=== PATIENT | female | born 1975 | race Caucasian/White ===

== ENCOUNTER → 2016-06-19 | Outpatient (CLI) | payer OTHER | LOC: MAMMO 10:14 | DX: Z12.31 Encounter for screening mammogram for malignant neoplasm of breast (principal) | CPT/HCPCS: G0202 ==

== ENCOUNTER 2018-05-23 08:50 | Emergency (ER) | payer BC ==
[~2018-05-23] VITALS: Wt 75.0 kg
[2018-05-23] MEDS ORDERED: ETHINYL ESTRADI1 TA1 PO (09:01)
[2018-05-23 09:24] LABS: EOS # 0.2 (0.04-0.40); EOS % 3.3 % (1.0-5.0); HEMATOCRIT 38.2 % (37.0-47.0); LYMPH# 1.7 (1.50-4.00); MEAN CELL VOLUME 91 fl (78-100); MEAN CORPUSCULAR HEMOGLOBIN 31 pg (27-31); MEAN CORPUSCULAR HGB CONC 34 g/dL (33-37); MEAN PLATELET VOLUME 10.7 fl (7.4-10.4); MONO # 0.4 (0.20-0.80); NEU # 3.8 (1.40-6.50); PLATELET COUNT 224 K/mm3 (130-400); RED BLOOD COUNT 4.18 M/mm3 (4.10-5.30); RED CELL DISTRIBUTION WIDTH 12.7 % (11.5-14.5); WHITE BLOOD COUNT 6.2 K/mm3 (4.8-10.8)
[2018-05-23 09:31] LABS: ALBUMIN 4.3 g/dL (3.5-5.0); POTASSIUM 3.6 mmol/L (3.6-5.0); TOTAL BILIRUBIN 0.4 mg/dL (0.2-1.3); TOTAL PROTEIN 7.8 g/dL (6.3-8.2)
[2018-05-23] MEDS ORDERED: DILANTIN 100MG100 MG PO (12:29)
[2018-05-23 12:55] VITALS: BP 132/76
== END 2018-05-23 12:58 | disposition home or self-care (01) ==
LOC: ED 08:50
PROVIDERS: Nurse Practitioner Primary Care
DX: R56.9 Unspecified convulsions (principal); S00.03XA Contusion of scalp, initial encounter; Z98.51 Tubal ligation status
CPT/HCPCS: J1885; J2060; J2405

== ENCOUNTER → 2018-05-26 | Outpatient (CLI) | payer BC ==
[2018-05-23 12:55] VITALS: BP 132/76
[~2018-05-26] MED LIST: DILANTIN 100MG100 MG PO; ETHINYL ESTRADI1 TA1 PO
== END ==
LOC: RAD 11:46
DX: R56.9 Unspecified convulsions (principal)
CPT/HCPCS: A9585

== ENCOUNTER → 2018-05-29 | Outpatient (CLI) | payer BC ==
[2018-05-23 12:55] VITALS: BP 132/76
[2018-05-29 10:35] LABS: EOS # 0.1 (0.04-0.40); EOS % 2.4 % (1.0-5.0); HEMATOCRIT 38.3 % (37.0-47.0); HEMOGLOBIN 12.5 g/dL (12.5-16.0); LYMPH# 1.1 (1.50-4.00); MEAN CELL VOLUME 93 fl (78-100); MEAN CORPUSCULAR HEMOGLOBIN 31 pg (27-31); MEAN CORPUSCULAR HGB CONC 33 g/dL (33-37); MEAN PLATELET VOLUME 10.4 fl (7.4-10.4); MONO # 0.4 (0.20-0.80); NEU # 3.6 (1.40-6.50); PLATELET COUNT 224 K/mm3 (130-400); RED CELL DISTRIBUTION WIDTH 13.1 % (11.5-14.5); WHITE BLOOD COUNT 5.3 K/mm3 (4.8-10.8)
[2018-05-29 10:51] LABS: ALBUMIN 4.3 g/dL (3.5-5.0); AST-SGOT 18 U/L (14-36); CALCIUM 9.1 mg/dL (8.4-10.2); CARBON DIOXIDE 27 mmol/L (22-30); GLUCOSE 92 mg/dL (65-105); POTASSIUM 4.2 mmol/L (3.6-5.0); SODIUM 140 mmol/L (137-145); TOTAL BILIRUBIN 0.4 mg/dL (0.2-1.3); TOTAL PROTEIN 7.5 g/dL (6.3-8.2)
[2018-05-29 11:06] LABS: ALT/SGPT < 3 U/L (9-52)
[2018-05-29 13:09] LABS: PHENYTOIN (DILANTIN) 5.2 ug/mL (10.0-20.0)
== END ==
LOC: LAB 10:11
PROVIDERS: Internal Medicine
DX: G40.409 Other generalized epilepsy and epileptic syndromes, not intractable, without status epilepticus (principal)

== ENCOUNTER → 2018-06-05 | Outpatient (CLI) | payer BC ==
[2018-05-23 12:55] VITALS: BP 132/76
== END ==
LOC: LAB 07:44
DX: G40.409 Other generalized epilepsy and epileptic syndromes, not intractable, without status epilepticus (principal)

== ENCOUNTER → 2018-09-06 | Outpatient (CLI) | payer BC ==
[2018-09-06 20:01] LABS: ALBUMIN 4.2 g/dL (3.5-5.0); CALCIUM 9.2 mg/dL (8.4-10.2); POTASSIUM 4.2 mmol/L (3.5-5.1); TOTAL PROTEIN 6.9 g/dL (6.4-8.3)
[2018-09-06 20:39] LABS: TOTAL BILIRUBIN 0.1 mg/dL (0.2-1.2)
== END ==
LOC: LAB 08:54
PROVIDERS: Internal Medicine
DX: Z00.00 Encounter for general adult medical examination without abnormal findings (principal)

== ENCOUNTER → 2019-04-03 | Outpatient (CLI) | payer BC ==
[2019-04-03 10:46] LABS: EOS # 0.1 (0.04-0.40); EOS % 0.7 % (1.0-5.0); LYMPH# 1.4 (1.50-4.00); MEAN CELL VOLUME 93 fl (78-100); MEAN CORPUSCULAR HEMOGLOBIN 31 pg (27-31); MEAN CORPUSCULAR HGB CONC 33 g/dL (33-37); MEAN PLATELET VOLUME 10.3 fl (7.4-10.4); MONO # 0.4 (0.20-0.80); NEU # 5.2 (1.40-6.50); PLATELET COUNT 232 K/mm3 (130-400); RED BLOOD COUNT 4.18 M/mm3 (4.10-5.30); RED CELL DISTRIBUTION WIDTH 12.5 % (11.5-14.5)
[2019-04-03 11:00] LABS: ALBUMIN 4.3 g/dL (3.5-5.0); POTASSIUM 3.9 mmol/L (3.5-5.1)
[2019-04-03 11:01] LABS: CALCIUM 9.4 mg/dL (8.3-10.5)
[2019-04-03 11:02] LABS: TOTAL PROTEIN 7.6 g/dL (6.4-8.3)
[2019-04-03 11:04] LABS: TOTAL BILIRUBIN 0.6 mg/dL (0.2-1.2)
[2019-04-03 11:13] LABS: PH-URINE 7.5 (5.0 - 8.0); URINE APPEARANCE CLEAR; URINE BILIRUBIN NEGATIVE (NEGATIVE); URINE BLOOD NEGATIVE (NEGATIVE); URINE COLOR YELLOW; URINE GLUCOSE NEGATIVE (NEGATIVE); URINE KETONE NEGATIVE (NEGATIVE); URINE LEUKOCYTE ESTERASE NEGATIVE (NEGATIVE); URINE NITRATE NEGATIVE (NEGATIVE); URINE PROTEIN(semi-quant) NEGATIVE (NEGATIVE); URINE UROBILINOGEN NORMAL (NORMAL); URINE WBC 0-1 /hpf (0-3)
== END ==
LOC: LAB 10:36
PROVIDERS: Physician Assistant
DX: M20.40 Other hammer toe(s) (acquired), unspecified foot (principal); M67.479 Ganglion, unspecified ankle and foot; R10.31 Right lower quadrant pain; R11.0 Nausea

== ENCOUNTER → 2020-06-28 | Outpatient (CLI) | payer BC | LOC: MAMMO 07:41 | DX: Z12.31 Encounter for screening mammogram for malignant neoplasm of breast (principal) ==

== ENCOUNTER → 2020-07-01 | Outpatient (CLI) | payer BC ==
[2020-07-01 17:45] LABS: EOS # 0.3 (0.04-0.40); EOS % 4.4 % (1.0-5.0); HEMATOCRIT 39.6 % (37.0-47.0); HEMOGLOBIN 12.9 g/dL (12.5-16.0); LYMPH# 1.9 (1.50-4.00); MEAN CELL VOLUME 94 fl (78-100); MEAN CORPUSCULAR HEMOGLOBIN 31 pg (27-31); MEAN CORPUSCULAR HGB CONC 33 g/dL (33-37); MEAN PLATELET VOLUME 10.6 fl (7.4-10.4); MONO # 0.5 (0.20-0.80); NEU # 3.8 (1.40-6.50); PLATELET COUNT 244 K/mm3 (130-400); RED BLOOD COUNT 4.22 M/mm3 (4.10-5.30); RED CELL DISTRIBUTION WIDTH 12.7 % (11.5-14.5); WHITE BLOOD COUNT 6.5 K/mm3 (4.8-10.8)
[2020-07-01 17:48] LABS: POTASSIUM 3.8 mmol/L (3.5-5.1)
[2020-07-01 17:49] LABS: ALBUMIN 4.3 g/dL (3.5-5.0)
[2020-07-01 17:50] LABS: CALCIUM 9.4 mg/dL (8.3-10.5)
[2020-07-01 17:51] LABS: TOTAL PROTEIN 7.6 g/dL (6.4-8.3)
[2020-07-01 17:53] LABS: TOTAL BILIRUBIN 0.4 mg/dL (0.2-1.2)
[2020-07-01 18:58] LABS: ERYTHROCYTE SEDIMENTATION RATE 31 mm/hr (0-20)
[2020-07-05 00:16] LABS: LEVETIRACETAM (KEPPRA) 8 ug/mL (5-45)
[2020-07-05 13:11] LABS: ANA SCREEN with REFLEX Negative (Negative)
== END ==
LOC: LAB 17:19
PROVIDERS: Internal Medicine
DX: Z00.00 Encounter for general adult medical examination without abnormal findings (principal)

== ENCOUNTER → 2020-07-06 | Outpatient (CLI) | payer BC ==
[2020-07-08 00:09] LABS: ANTI-CYC CITRULLINATED PEPT AB <20.0 CU (0.0-19.9)
== END ==
LOC: LAB 08:00
PROVIDERS: Internal Medicine
DX: M65.9 Synovitis and tenosynovitis, unspecified (principal)

== ENCOUNTER → 2020-08-08 | Outpatient (CLI) | payer BC | LOC: LAB 08:01 | DX: Z51.81 Encounter for therapeutic drug level monitoring (principal); R53.83 Other fatigue; M79.641 Pain in right hand; M79.642 Pain in left hand ==

== ENCOUNTER → 2021-01-24 | Outpatient (CLI) | payer BC ==
[2021-01-24 17:57] LABS: POTASSIUM 4.2 mmol/L (3.5-5.1)
== END ==
LOC: LAB 16:28
PROVIDERS: Family Medicine
DX: I48.91 Unspecified atrial fibrillation (principal)

== ENCOUNTER → 2021-01-30 | Outpatient (CLI) | payer BC | LOC: AMSURD 18:15 | DX: R00.2 Palpitations (principal) ==

== ENCOUNTER → 2021-02-13 | Outpatient (CLI) | payer BC ==
[2021-02-14] LABS: T3 FREE 3.2 pg/mL (1.7-3.7)
[2021-02-15 05:04] LABS: LEVETIRACETAM (KEPPRA) <2 ug/mL (5-45)
== END ==
LOC: LAB 08:15
PROVIDERS: Family Medicine
DX: G40.309 Generalized idiopathic epilepsy and epileptic syndromes, not intractable, without status epilepticus (principal); I49.3 Ventricular premature depolarization; K90.9 Intestinal malabsorption, unspecified

== ENCOUNTER → 2021-02-15 | Outpatient (CLI) | payer BC | LOC: RAD 13:00 | DX: I49.3 Ventricular premature depolarization (principal); I08.3 Combined rheumatic disorders of mitral, aortic and tricuspid valves ==

== ENCOUNTER → 2021-02-24 | Outpatient (CLI) | payer BC | LOC: CARDREHAB 14:12 | DX: G47.19 Other hypersomnia (principal) | CPT/HCPCS: G0399 ==

== ENCOUNTER → 2023-10-09 | Outpatient (CLI) | payer BC ==
[2023-10-09 09:22] LABS: ALBUMIN 4.4 g/dL (3.5-5.0)
[2023-10-09 09:23] LABS: CALCIUM 9.8 mg/dL (8.3-10.5)
[2023-10-09 09:24] LABS: TOTAL PROTEIN 7.4 g/dL (6.4-8.3)
[2023-10-09 09:26] LABS: TOTAL BILIRUBIN 0.6 mg/dL (0.2-1.2)
== END ==
LOC: LAB 08:52
PROVIDERS: Nurse Practitioner
DX: Z02.6 Encounter for examination for insurance purposes (principal); G40.409 Other generalized epilepsy and epileptic syndromes, not intractable, without status epilepticus